=== PATIENT | male | born 1960 | race Caucasian/White ===

== ENCOUNTER 2022-02-05 20:49 | Emergency (ER) | payer MEDICAID ==
[2022-02-05] MEDS ORDERED: Doxycycline 100 MG in Sodium Chloride 0.9% 100 ML IV ONE (21:00)
[2022-02-05] MEDS ORDERED: Sodium Chloride 0.9% 10 ML Syringe FLUSH PRN (21:00)
[2022-02-05] MEDS ORDERED: methylPREDNISolone Sodium Succinate 125 MG/2 ML SDV IVPUSH ONE (21:05)
[2022-02-05] MEDS ORDERED: Diphtheria,Pertussis(Acell),Tetanus Vaccine 0.5 ML Syringe IM ONE (21:34)
[2022-02-05 22:05] VITALS: BP 115/68; PULSE 83
== END 2022-02-05 22:21 | disposition home or self-care (01) ==
LOC: DL.ED 20:49
DX: S60.562A Insect bite (nonvenomous) of left hand, initial encounter (principal); Z79.82 Long term (current) use of aspirin; Z23 Encounter for immunization; Z79.899 Other long term (current) drug therapy; W57.XXXA Bitten or stung by nonvenomous insect and other nonvenomous arthropods, initial encounter
CPT/HCPCS: 90471; 90715; 96365; 96375; 99282; J2930; J3490